=== PATIENT | female | born 1985 | race Caucasian/White ===

== ENCOUNTER 2023-02-22 11:31 | Outpatient (CLI) | payer OTHER, MEDICAID, SELFPAY ==
--- NOTE | 2023-02-22 11:59 | MM_ITS ---
WS: [id number] Bilateral diagnostic 3D tomosynthesis digital mammogram, 02/22/2023 Clinical Data: WILLY BR LUMPS Comparison: None. Findings: The breasts show minimal fibroglandular tissue. No spiculated masses nor clustered calcifications are seen. The sites of the pain and palpable lumps show no abnormalities. There are lymph nodes in the l eft axilla. There are no secondary signs of carcinoma. Impression: 1. Negative bilateral mammograms with no prior exam for review. 2. Return for clinical follow-up. MM/[place] [id number] BIRADS: 1-Negative FOLLOW UP: See Report The [employer] was used.
== END 2023-02-22 11:32 | disposition home or self-care (01) ==
LOC: RAD 11:31
PROVIDERS: PCP Advanced Practice Midwife; Visit Provider Advanced Practice Midwife
DX: N63.20 Unspecified lump in the left breast, unspecified quadrant (principal); N63.10 Unspecified lump in the right breast, unspecified quadrant
CPT/HCPCS: 77062; G0279